=== PATIENT | male | born 1950 | race Caucasian/White ===

== ENCOUNTER 2018-07-20 12:14 | Inpatient (IN) | payer OTHER, MEDICARE ==
[2018-07-20 14:34] LABS: ADD MAN DIFF? NO
[2018-07-20 14:38] LABS: ADD UMIC YES; BASOPHILS % 0.5 % (0.0-2.0); EOSINOPHILS # 0.1 10^3/ul (0.0-0.5); EOSINOPHILS % 1.3 % (0.0-7.0); HEMATOCRIT 42.3 % (42.0-52.0); HEMOGLOBIN 13.2 g/dl (14.0-18.0); LYMPHOCYTES # 2.8 10^3/ul (0.8-2.9); LYMPHOCYTES % 35.4 % (15.0-51.0); MEAN CORPUSCULAR HEMOGLOBIN 29.7 pg (29.0-33.0); MEAN CORPUSCULAR HGB CONC 31.2 g/dl (32.0-37.0); MEAN CORPUSCULAR VOLUME 95.1 fl (82.0-101.0); MEAN PLATELET VOLUME 10.2 fl (7.4-10.4); MONOCYTE # 0.6 10^3/ul (0.3-0.9); MONOCYTES % 7.7 % (0.0-11.0); NEUTROPHIL # 4.2 10^3/ul (1.6-7.5); NEUTROPHILS % 54.6 % (39.0-77.0); PLATELET COUNT 175 10^3/UL (140-415); RED BLOOD COUNT 4.45 10^6/ul (4.70-6.10); RED CELL DISTRIBUTION WIDTH 13.8 % (11.5-14.5); UR ASCORBIC ACID NEGATIVE (NEGATIVE); UR BACTERIA FEW /HPF (NONE SEEN); UR BILIRUBIN (Dip) NEGATIVE (NEGATIVE); UR BLOOD (Dip) 1+ mg/dL (NEGATIVE); UR CLARITY CLOUDY (CLEAR); UR COLOR YELLOW (YELLOW); UR GLUCOSE (Dip) NEGATIVE (NEGATIVE); UR KETONES (Dip) NEGATIVE (NEGATIVE); UR LEUKOCYTE ESTERASE (Dip) 2+ Leu/ul (NEGATIVE); UR MUCUS FEW /HPF (NONE SEEN); UR NITRITE (Dip) NEGATIVE (NEGATIVE); UR RBC 64 /HPF (0-5); UR SPECIFIC GRAVITY (Dip) 1.009 (1.003-1.030); UR TOTAL PROTEIN (Dip) 1+ mg/dl (NEGATIVE); UR UROBILINOGEN (Dip) NEGATIVE (NEGATIVE); UR WBC > 182 /HPF (0-5)
[2018-07-20 14:38] LABS: WHITE BLOOD COUNT 7.8 10^3/ul (4.8-10.8)
[2018-07-20 14:58] LABS: ALANINE AMINOTRANSFERASE 14 IU/L (13-69); ALBUMIN 4.2 g/dl (3.3-4.9); ALBUMIN/GLOBULIN RATIO 1.23; ALKALINE PHOSPHATASE 101 IU/L (42-121); ANION GAP 11 (5-13); ASPARTATE AMINO TRANSFERASE 22 IU/L (15-46); BILIRUBIN,INDIRECT 0.4 mg/dl (0-1.1); BILIRUBIN,TOTAL 0.4 mg/dl (0.2-1.3); BLOOD UREA NITROGEN 21 mg/dl (7-20); CALCIUM 9.8 mg/dl (8.4-10.2); CARBON DIOXIDE 16 mmol/L (21-31); CHLORIDE 114 mmol/L (97-110); CREATININE 1.63 mg/dl (0.61-1.24); Estimated GFR 42 mL/min (>60); GLUCOSE 105 mg/dl (70-220); POTASSIUM 4.5 mmol/L (3.5-5.1); SODIUM 141 mmol/L (135-144); TOTAL PROTEIN 7.6 g/dl (6.1-8.1)
[2018-07-20] MEDS: ERTAPENEM SODIUM 1 GM in SOD CHLORIDE 0.9% 100 ML IVPB (15:15)
[2018-07-20] MEDS: ACETAMINOPHEN 325 MG TAB PO (16:51)
[2018-07-20] MEDS ORDERED: ONDANSETRON 4 MG INJ IV ×2 (18:00)
[2018-07-20] MEDS ORDERED: morphine 2 MG INJ IV (18:00)
[2018-07-20] MEDS ORDERED: LORAZEPAM 2 MG INJ IV (18:00)
[2018-07-20] MEDS ORDERED: DOCUSATE SODIUM 100 MG CAP PO (18:00)
[2018-07-20] MEDS ORDERED: HYDROCODONE/APAP (5/325) TAB PO (18:00)
[2018-07-20] MEDS ORDERED: ACETAMINOPHEN 325 MG TAB PO ×2 (18:00)
[2018-07-20] MEDS ORDERED: NACL 0.9% 3 ML SYG IV (18:00)
[2018-07-20] MEDS ORDERED: NITROGLYCERIN (SL) 0.4 MG TAB SL (18:00)
[2018-07-20] MEDS ORDERED: ALBUTEROL/IPRATROPIUM (NEB) 3 ML AMP HHN (18:00)
[2018-07-20] MEDS ORDERED: hydrALAzine 20 MG INJ IV (18:00)
[2018-07-20 19:21] LABS: INR 1.68; PROTIME 19.9 Sec (11.9-14.9); PT RATIO 1.6
[2018-07-20 19:22] LABS: PARTIAL THROMBOPLASTIN TIME 37.6 Sec (23.0-35.0)
[2018-07-20 19:33] LABS: FREE T4 (FREE THYROXINE) 1.02 ng/dl (0.78-2.44)
[2018-07-20] MEDS ORDERED: HEPARIN 5,000 UNIT/1 ML VIAL SC (21:00)
[2018-07-20] MEDS: POT CITRATE/CITRIC ACID (PO SYG) PO (21:00)
[2018-07-20] MEDS: MEROPENEM 1 GM/50ML(PMX) 50 ML IVPB (22:17)
[2018-07-20] MEDS: LOSARTAN 50 MG TAB PO (22:17)
[2018-07-20] MEDS: SOD CHLORIDE 0.45% 1,000 ML IV (22:17)
[2018-07-21] MEDS: PANTOPRAZOLE (EC) 40 MG TAB PO (05:22)
[2018-07-21 05:47] LABS: ADD MAN DIFF? NO
[2018-07-21 05:57] LABS: WHITE BLOOD COUNT 7.1 10^3/ul (4.8-10.8)
[2018-07-21 05:57] LABS: BASOPHILS % 0.6 % (0.0-2.0); EOSINOPHILS # 0.1 10^3/ul (0.0-0.5); HEMATOCRIT 38.1 % (42.0-52.0); HEMOGLOBIN 12.1 g/dl (14.0-18.0); LYMPHOCYTES # 2.6 10^3/ul (0.8-2.9); LYMPHOCYTES % 37.1 % (15.0-51.0); MEAN CORPUSCULAR HGB CONC 31.8 g/dl (32.0-37.0); MEAN CORPUSCULAR VOLUME 94.5 fl (82.0-101.0); MEAN PLATELET VOLUME 10.3 fl (7.4-10.4); MONOCYTE # 0.7 10^3/ul (0.3-0.9); MONOCYTES % 9.9 % (0.0-11.0); NEUTROPHIL # 3.5 10^3/ul (1.6-7.5); PLATELET COUNT 172 10^3/UL (140-415); RED BLOOD COUNT 4.03 10^6/ul (4.70-6.10); RED CELL DISTRIBUTION WIDTH 13.6 % (11.5-14.5)
[2018-07-21 06:07] LABS: INR 1.73; PROTIME 20.3 Sec (11.9-14.9); PT RATIO 1.6
[2018-07-21 06:21] LABS: CHOL/HDL RATIO 3.3 RATIO; HDL CHOLESTEROL 34 mg/dl (30-78); LDL CHOLESTEROL,CALCULATED 54 mg/dl; TRIGLYCERIDES 126 mg/dl (0-149)
[2018-07-21 06:21] LABS: CHOLESTEROL 113 mg/dl (100-200)
[2018-07-21 06:27] LABS: ANION GAP 7 (5-13); BLOOD UREA NITROGEN 20 mg/dl (7-20); CALCIUM 9.3 mg/dl (8.4-10.2); CARBON DIOXIDE 19 mmol/L (21-31); CHLORIDE 114 mmol/L (97-110); Estimated GFR 47 mL/min (>60); GLUCOSE 92 mg/dl (70-220); MAGNESIUM 2.1 mg/dl (1.7-2.5); PHOSPHORUS 2.5 mg/dl (2.5-4.9); POTASSIUM 3.9 mmol/L (3.5-5.1); SODIUM 140 mmol/L (135-144)
[2018-07-21] MEDS: SOD CHLORIDE 0.45% 1,000 ML IV ×3 (06:46→20:16)
[2018-07-21 06:59] LABS: HEMOGLOBIN A1C 5.3 % (0-5.9)
[2018-07-21] MEDS ORDERED: NON-FORMULARY/PATIENT OWN MED (Omeprazole* 20 MG) PO (09:00)
[2018-07-21] MEDS: CITRIC ACID/NA CITRATE 30 ML CUP PO ×2 (09:59→20:34)
[2018-07-21] MEDS: ASPIRIN 81 MG TAB PO (09:59)
[2018-07-21] MEDS: MEROPENEM 1 GM/50ML(PMX) 50 ML IVPB ×2 (09:59→20:31)
[2018-07-21] MEDS: FOLIC ACID 1 MG TAB PO (09:59)
[2018-07-21] MEDS: WARFARIN 5 MG TAB PO (17:32)
[2018-07-21] MEDS: LOSARTAN 50 MG TAB PO (20:30)
[2018-07-22] MEDS: PANTOPRAZOLE (EC) 40 MG TAB PO (05:27)
[2018-07-22] MEDS: SOD CHLORIDE 0.45% 1,000 ML IV (05:28)
[2018-07-22 05:55] LABS: ADD MAN DIFF? NO
[2018-07-22 05:58] LABS: WHITE BLOOD COUNT 6.1 10^3/ul (4.8-10.8)
[2018-07-22 05:58] LABS: BASOPHILS % 0.5 % (0.0-2.0); EOSINOPHILS # 0.1 10^3/ul (0.0-0.5); EOSINOPHILS % 1.7 % (0.0-7.0); HEMATOCRIT 35.8 % (42.0-52.0); HEMOGLOBIN 11.3 g/dl (14.0-18.0); LYMPHOCYTES # 2.4 10^3/ul (0.8-2.9); LYMPHOCYTES % 39.6 % (15.0-51.0); MEAN CORPUSCULAR HEMOGLOBIN 30.2 pg (29.0-33.0); MEAN CORPUSCULAR HGB CONC 31.6 g/dl (32.0-37.0); MEAN CORPUSCULAR VOLUME 95.7 fl (82.0-101.0); MEAN PLATELET VOLUME 10.3 fl (7.4-10.4); MONOCYTE # 0.6 10^3/ul (0.3-0.9); MONOCYTES % 10.6 % (0.0-11.0); NEUTROPHIL # 2.9 10^3/ul (1.6-7.5); NEUTROPHILS % 47.3 % (39.0-77.0); PLATELET COUNT 145 10^3/UL (140-415); RED BLOOD COUNT 3.74 10^6/ul (4.70-6.10); RED CELL DISTRIBUTION WIDTH 13.7 % (11.5-14.5)
[2018-07-22 06:38] LABS: ANION GAP 10 (5-13); BLOOD UREA NITROGEN 18 mg/dl (7-20); CALCIUM 9.1 mg/dl (8.4-10.2); CARBON DIOXIDE 15 mmol/L (21-31); CHLORIDE 117 mmol/L (97-110); CREATININE 1.56 mg/dl (0.61-1.24); Estimated GFR 44 mL/min (>60); GLUCOSE 111 mg/dl (70-220); POTASSIUM 3.9 mmol/L (3.5-5.1); SODIUM 142 mmol/L (135-144)
[2018-07-22] MEDS: CITRIC ACID/NA CITRATE 30 ML CUP PO ×3 (09:00→21:00)
[2018-07-22] MEDS: FOLIC ACID 1 MG TAB PO (09:05)
[2018-07-22] MEDS: ASPIRIN 81 MG TAB PO (09:05)
[2018-07-22] MEDS: MEROPENEM 1 GM/50ML(PMX) 50 ML IVPB ×2 (09:06→22:08)
[2018-07-22 09:48] LABS: PROTIME 18.2 Sec (11.9-14.9); PT RATIO 1.4
[2018-07-22] MEDS: MAGNESIUM HYDROXIDE 30ML CUP PO (12:04)
[2018-07-22] MEDS: WARFARIN 5 MG TAB PO (18:13)
[2018-07-22] MEDS: LOSARTAN 50 MG TAB PO (22:09)
[2018-07-23 05:22] LABS: ADD MAN DIFF? NO
[2018-07-23 05:24] LABS: WHITE BLOOD COUNT 6.2 10^3/ul (4.8-10.8)
[2018-07-23 05:24] LABS: BASOPHILS % 0.5 % (0.0-2.0); EOSINOPHILS # 0.2 10^3/ul (0.0-0.5); EOSINOPHILS % 2.7 % (0.0-7.0); HEMATOCRIT 35.6 % (42.0-52.0); HEMOGLOBIN 11.4 g/dl (14.0-18.0); LYMPHOCYTES # 2.8 10^3/ul (0.8-2.9); LYMPHOCYTES % 45.4 % (15.0-51.0); MEAN CORPUSCULAR HEMOGLOBIN 30.1 pg (29.0-33.0); MEAN CORPUSCULAR VOLUME 93.9 fl (82.0-101.0); MEAN PLATELET VOLUME 10.3 fl (7.4-10.4); MONOCYTE # 0.6 10^3/ul (0.3-0.9); MONOCYTES % 10.3 % (0.0-11.0); NEUTROPHIL # 2.5 10^3/ul (1.6-7.5); NEUTROPHILS % 40.8 % (39.0-77.0); PLATELET COUNT 147 10^3/UL (140-415); RED BLOOD COUNT 3.79 10^6/ul (4.70-6.10)
[2018-07-23] MEDS: PANTOPRAZOLE (EC) 40 MG TAB PO (05:32)
[2018-07-23 06:09] LABS: ANION GAP 7 (5-13); BLOOD UREA NITROGEN 16 mg/dl (7-20); CALCIUM 8.9 mg/dl (8.4-10.2); CARBON DIOXIDE 16 mmol/L (21-31); CHLORIDE 119 mmol/L (97-110); CREATININE 1.39 mg/dl (0.61-1.24); Estimated GFR 51 mL/min (>60); GLUCOSE 99 mg/dl (70-220); SODIUM 142 mmol/L (135-144)
[2018-07-23] MEDS: CITRIC ACID/NA CITRATE 30 ML CUP PO ×2 (09:00→21:00)
[2018-07-23] MEDS: FOLIC ACID 1 MG TAB PO (09:24)
[2018-07-23] MEDS: MEROPENEM 1 GM/50ML(PMX) 50 ML IVPB ×2 (09:24→21:54)
[2018-07-23] MEDS: ASPIRIN 81 MG TAB PO (09:25)
[2018-07-23 09:31] LABS: INR 1.78; PROTIME 20.8 Sec (11.9-14.9); PT RATIO 1.6
[2018-07-23] MEDS: WARFARIN 5 MG TAB PO (17:40)
[2018-07-23] MEDS: LOSARTAN 50 MG TAB PO (21:52)
[2018-07-24] MEDS: PANTOPRAZOLE (EC) 40 MG TAB PO (05:45)
[2018-07-24 07:23] LABS: ADD MAN DIFF? NO
[2018-07-24 07:31] LABS: BASOPHIL # 0.1 10^3/ul (0.0-0.1); BASOPHILS % 0.7 % (0.0-2.0); EOSINOPHILS # 0.2 10^3/ul (0.0-0.5); EOSINOPHILS % 2.1 % (0.0-7.0); HEMOGLOBIN 11.9 g/dl (14.0-18.0); LYMPHOCYTES # 2.9 10^3/ul (0.8-2.9); LYMPHOCYTES % 37.6 % (15.0-51.0); MEAN CORPUSCULAR HEMOGLOBIN 29.7 pg (29.0-33.0); MEAN CORPUSCULAR HGB CONC 31.3 g/dl (32.0-37.0); MEAN CORPUSCULAR VOLUME 94.8 fl (82.0-101.0); MEAN PLATELET VOLUME 10.6 fl (7.4-10.4); MONOCYTE # 0.6 10^3/ul (0.3-0.9); MONOCYTES % 8.3 % (0.0-11.0); NEUTROPHIL # 3.9 10^3/ul (1.6-7.5); NEUTROPHILS % 50.9 % (39.0-77.0); PLATELET COUNT 156 10^3/UL (140-415); RED BLOOD COUNT 4.01 10^6/ul (4.70-6.10); RED CELL DISTRIBUTION WIDTH 14.1 % (11.5-14.5)
[2018-07-24 07:31] LABS: WHITE BLOOD COUNT 7.6 10^3/ul (4.8-10.8)
[2018-07-24 07:52] LABS: ANION GAP 8 (5-13); BLOOD UREA NITROGEN 18 mg/dl (7-20); CALCIUM 9.1 mg/dl (8.4-10.2); CARBON DIOXIDE 15 mmol/L (21-31); CHLORIDE 120 mmol/L (97-110); CREATININE 1.45 mg/dl (0.61-1.24); Estimated GFR 48 mL/min (>60); GLUCOSE 107 mg/dl (70-220); POTASSIUM 4.3 mmol/L (3.5-5.1); SODIUM 143 mmol/L (135-144)
[2018-07-24] MEDS: ASPIRIN 81 MG TAB PO (08:37)
[2018-07-24] MEDS: FOLIC ACID 1 MG TAB PO (08:37)
[2018-07-24] MEDS: CITRIC ACID/NA CITRATE 30 ML CUP PO ×2 (08:38→20:09)
[2018-07-24] MEDS: MEROPENEM 1 GM/50ML(PMX) 50 ML IVPB ×2 (08:38→20:09)
[2018-07-24 11:38] LABS: INR 2.34; PROTIME 25.7 Sec (11.9-14.9)
[2018-07-24] MEDS: LIDOCAINE 1% (MPF) 5 ML VIAL SC (13:20)
[2018-07-24] MEDS: WARFARIN 5 MG TAB PO (16:37)
[2018-07-24] MEDS: LOSARTAN 50 MG TAB PO (20:08)
[2018-07-25 05:26] LABS: ADD MAN DIFF? NO
[2018-07-25 05:40] LABS: WHITE BLOOD COUNT 7.8 10^3/ul (4.8-10.8)
[2018-07-25 05:40] LABS: BASOPHILS % 0.4 % (0.0-2.0); EOSINOPHILS # 0.2 10^3/ul (0.0-0.5); EOSINOPHILS % 2.2 % (0.0-7.0); HEMATOCRIT 36.5 % (42.0-52.0); HEMOGLOBIN 11.5 g/dl (14.0-18.0); LYMPHOCYTES # 3.2 10^3/ul (0.8-2.9); LYMPHOCYTES % 41.2 % (15.0-51.0); MEAN CORPUSCULAR HEMOGLOBIN 30.3 pg (29.0-33.0); MEAN CORPUSCULAR HGB CONC 31.5 g/dl (32.0-37.0); MEAN CORPUSCULAR VOLUME 96.1 fl (82.0-101.0); MEAN PLATELET VOLUME 10.3 fl (7.4-10.4); MONOCYTE # 0.6 10^3/ul (0.3-0.9); NEUTROPHIL # 3.7 10^3/ul (1.6-7.5); NEUTROPHILS % 47.8 % (39.0-77.0); PLATELET COUNT 142 10^3/UL (140-415); RED CELL DISTRIBUTION WIDTH 14.1 % (11.5-14.5)
[2018-07-25 06:14] LABS: ANION GAP 11 (5-13); BLOOD UREA NITROGEN 21 mg/dl (7-20); CALCIUM 8.9 mg/dl (8.4-10.2); CARBON DIOXIDE 17 mmol/L (21-31); CHLORIDE 115 mmol/L (97-110); CREATININE 1.53 mg/dl (0.61-1.24); Estimated GFR 45 mL/min (>60); GLUCOSE 103 mg/dl (70-220); POTASSIUM 4.2 mmol/L (3.5-5.1); SODIUM 143 mmol/L (135-144)
[2018-07-25] MEDS: PANTOPRAZOLE (EC) 40 MG TAB PO (06:15)
[2018-07-25] MEDS: CITRIC ACID/NA CITRATE 30 ML CUP PO ×2 (09:00→20:22)
[2018-07-25] MEDS: ASPIRIN 81 MG TAB PO (09:01)
[2018-07-25] MEDS: FOLIC ACID 1 MG TAB PO (09:01)
[2018-07-25] MEDS: MEROPENEM 1 GM/50ML(PMX) 50 ML IVPB ×2 (09:03→20:22)
[2018-07-25 09:41] LABS: INR 3.37; PROTIME 34.1 Sec (11.9-14.9); PT RATIO 2.7
[2018-07-25] MEDS: LOSARTAN 50 MG TAB PO (20:20)
== END 2018-07-25 21:13 | DRG 690 ==
LOC: FTE 12:14 → PP2 17:35
PROC: 02HV33Z Insertion of Infusion Device into Superior Vena Cava, Percutaneous Approach (ICD-10-PCS; principal; 2018-07-24)
PROC: B548ZZA Ultrasonography of Superior Vena Cava, Guidance (ICD-10-PCS; 2018-07-24)
DX: N39.0 Urinary tract infection, site not specified (principal); B96.20 Unspecified Escherichia coli [E. coli] as the cause of diseases classified elsewhere; Z16.12 Extended spectrum beta lactamase (ESBL) resistance; R30.0 Dysuria; I12.9 Hypertensive chronic kidney disease with stage 1 through stage 4 chronic kidney disease, or unspecified chronic kidney disease; I25.2 Old myocardial infarction; I25.10 Atherosclerotic heart disease of native coronary artery without angina pectoris; Z89.512 Acquired absence of left leg below knee; N18.3 Chronic kidney disease, stage 3 (moderate)
CPT/HCPCS: 36569; 71045; 76775; 76937; 80048; 80053; 80061; 81001; 83036; 83735; 84100; 84439; 84443; 85025; 85610; 85730; 87086; 96365; 97161; 99285-25; G0378

== ENCOUNTER 2018-10-02 19:39 | Emergency (ER) | payer OTHER ==
[2018-10-02] MEDS: SOD CHLORIDE 0.9% 500 ML IV (20:18)
[2018-10-02] MEDS: OXYCODONE/ACETAMINOPHEN (5/325) TAB PO (20:19)
[2018-10-02 20:24] LABS: ADD MAN DIFF? NO
[2018-10-02 20:27] LABS: BASOPHIL # 0.1 10^3/ul (0.0-0.1); BASOPHILS % 0.4 % (0.0-2.0); EOSINOPHILS # 0.1 10^3/ul (0.0-0.5); HEMATOCRIT 39.2 % (42.0-52.0); HEMOGLOBIN 12.5 g/dl (14.0-18.0); LYMPHOCYTES # 2.4 10^3/ul (0.8-2.9); LYMPHOCYTES % 20.2 % (15.0-51.0); MEAN CORPUSCULAR HEMOGLOBIN 29.9 pg (29.0-33.0); MEAN CORPUSCULAR HGB CONC 31.9 g/dl (32.0-37.0); MEAN CORPUSCULAR VOLUME 93.8 fl (82.0-101.0); MONOCYTE # 0.5 10^3/ul (0.3-0.9); MONOCYTES % 4.2 % (0.0-11.0); NEUTROPHIL # 8.7 10^3/ul (1.6-7.5); NEUTROPHILS % 72.3 % (39.0-77.0); PLATELET COUNT 203 10^3/UL (140-415); RED BLOOD COUNT 4.18 10^6/ul (4.70-6.10); RED CELL DISTRIBUTION WIDTH 14.3 % (11.5-14.5)
[2018-10-02 20:27] LABS: WHITE BLOOD COUNT 12.1 10^3/ul (4.8-10.8)
[2018-10-02 20:33] LABS: ADD UMIC YES; UR ASCORBIC ACID NEGATIVE (NEGATIVE); UR BACTERIA FEW /HPF (NONE SEEN); UR BILIRUBIN (Dip) NEGATIVE (NEGATIVE); UR BLOOD (Dip) 1+ mg/dL (NEGATIVE); UR CLARITY CLOUDY (CLEAR); UR COLOR YELLOW (YELLOW); UR GLUCOSE (Dip) NEGATIVE (NEGATIVE); UR KETONES (Dip) NEGATIVE (NEGATIVE); UR LEUKOCYTE ESTERASE (Dip) 3+ Leu/ul (NEGATIVE); UR MUCUS FEW /HPF (NONE SEEN); UR NITRITE (Dip) POSITIVE (NEGATIVE); UR NONSQUAMOUS EPITHELIAL CELL 1 /HPF (NONE SEEN); UR RBC 8 /HPF (0-5); UR SPECIFIC GRAVITY (Dip) 1.008 (1.003-1.030); UR TOTAL PROTEIN (Dip) 1+ mg/dl (NEGATIVE); UR UROBILINOGEN (Dip) NEGATIVE (NEGATIVE); UR WBC 89 /HPF (0-5)
[2018-10-02 20:53] LABS: ANION GAP 7 (5-13); BLOOD UREA NITROGEN 36 mg/dl (7-20); CALCIUM 9.2 mg/dl (8.4-10.2); CARBON DIOXIDE 18 mmol/L (21-31); CHLORIDE 113 mmol/L (97-110); CREATININE 1.41 mg/dl (0.61-1.24); Estimated GFR 50 mL/min (>60); GLUCOSE 112 mg/dl (70-220); SODIUM 138 mmol/L (135-144)
[2018-10-02] MEDS: CEFTRIAXONE 1 GM/50 ML (PMX) 50 ML IVPB (21:17)
== END 2018-10-02 22:10 | disposition home or self-care (01) ==
LOC: E/R 19:39
DX: N39.0 Urinary tract infection, site not specified (principal); N45.1 Epididymitis; I12.9 Hypertensive chronic kidney disease with stage 1 through stage 4 chronic kidney disease, or unspecified chronic kidney disease; N18.9 Chronic kidney disease, unspecified; J45.909 Unspecified asthma, uncomplicated; I25.10 Atherosclerotic heart disease of native coronary artery without angina pectoris; I25.2 Old myocardial infarction; Z79.82 Long term (current) use of aspirin; Z79.01 Long term (current) use of anticoagulants
CPT/HCPCS: 76870; 80048; 81001; 85025; 87086; 96374; 99285-25

== ENCOUNTER 2019-01-16 17:44 | Emergency (ER) | payer OTHER ==
[2019-01-16 19:27] LABS: URINE BLOOD (Dip) POC 1+ (NEGATIVE); URINE GLUCOSE (Dip) POC Negative (NEGATIVE); URINE KETONES (Dip) POC Negative (NEGATIVE); URINE LEUKOCYTE EST (Dip) POC 2+ (NEGATIVE); URINE NITRITE (Dip) POC Negative (NEGATIVE); URINE TOTAL PROTEIN POC 2+ (NEGATIVE)
[2019-01-16 19:27] LABS: URINE PH (Dip) POC 7.5 (5.0-8.5)
== END 2019-01-16 19:51 | disposition home or self-care (01) ==
LOC: FTE 17:44
DX: N39.0 Urinary tract infection, site not specified (principal); J45.909 Unspecified asthma, uncomplicated
CPT/HCPCS: 81003; 99283